=== PATIENT | female | born 1970 | race Caucasian/White ===

== ENCOUNTER 2017-01-12 10:19 | Outpatient (CLI) | payer OTHER ==
[2016-03-27 14:56] VITALS: BP 128/74
== END 2017-01-12 10:20 ==
LOC: LABRHC 10:19
PROVIDERS: ATTEND Physician Assistant
DX: L81.8 Other specified disorders of pigmentation (principal)

== ENCOUNTER 2017-05-15 19:51 | Emergency (ER) | payer OTHER ==
[2017-05-15 20:23] VITALS: BP 141/80
--- NOTE | 2017-05-15 21:17 | ED Physician Documentation ---
Skin Rash - HISTORIAN Historian: patient, spouse - HPI Stated Complaint: rash Chief Complaint: Skin Rash Additional Information: eringworm-dog andcats in the house they threw them out today and cleaned and didinfected the house today are using lotrimin Onset: days ago (4) Timing: worse Duration: persistent since Location: generalized Quality: itchy, burning Identified Cause?: Yes Where: home - ROS CONST: none CVS/RESP: none EYES/ENT: none GI/: none MS/SKIN/LYMPH: none NEURO/PSYCH: none - PAST HX Past History: none Surgeries/Procedures: No Allergies/Adverse Reactions: Allergies Allergy/AdvReac Type Severity Reaction Status Date / Time No Known Drug Allergies Allergy Verified 05/15/17 20:16 - SOCIAL HX Smoking History: non-smoker Alcohol Use: none Drug Use: none - FAMILY HX Family History: none - VITAL SIGNS Vital Signs: Vital Signs Temp Pulse Resp BP Pulse Ox 98.1 F 97 H 16 141/80 99 05/15/17 19:55 05/15/17 19:55 05/15/17 19:55 05/15/17 19:55 05/15/17 19:55 - REVIEWED ASSESSMENTS Nursing Assessment Reviewed: Yes Vitals Reviewed: Yes Skin Rash Physical Exam - EXAM General Appearance: moderate distress, other (typical ringwormderm pattern) Skin: warm,dry, skin rash Location: generalized Character: asymmetric Symptoms: warmth Extremities: non-tender EENT: eyes nml inspection Neck: trachea midline Respiratory: no resp distress CVS: reg. rate & rhythm, heart sounds nml Abdomen: non-tender Neuro/Psych: oriented x3, CN's nml as tested, motor nml, sensation nml, mood/ affect nml Discharge Clincal Impression: Ringworm of body Referrals: Shannan Altamirano PHOTO FINISHER [Primary Care Provider] - 2 Days Comments: use lotriminand claritin and hydrocortizone Condition: Good Disposition: 01 HOME, SELF-CARE Decision to Admit: NO Decision Time: 21:20
== END 2017-05-15 21:15 | disposition home or self-care (01) ==
LOC: ED 19:51
DX: B35.4 Tinea corporis (principal)
CPT/HCPCS: 99283